=== PATIENT | female | born 1940 | race Caucasian/White ===

== ENCOUNTER → 2016-10-05 | Outpatient (CLI) | payer OTHER ==
--- NOTE | 2016-10-05 11:23 | DI ---
XR TOES MIN 2VW,10/05/2016 10:43 AM: Clinical History: Pain in toe of the left foot Previous Exam: None at this facility. Findings: 3 views of the left toes are obtained, and demonstrate a hammertoe deformity of the second and third digits. There is mild diffuse osteopenia. There is a hallux valgus deformity measuring 25?. No fractures are seen. There is mild prominence of the surrounding soft tissues. Impression: 25? hallux valgus of the left first metatarsophalangeal joint. Hammertoe deformities of the second and third digits. Diffuse osteopenia
== END ==
LOC: MOB RAD 10:43
DX: M79.675 Pain in left toe(s) (principal); M20.12 Hallux valgus (acquired), left foot; M20.42 Other hammer toe(s) (acquired), left foot; W18.09XA Striking against other object with subsequent fall, initial encounter
CPT/HCPCS: 73660